=== PATIENT | female | born 1985 | race Caucasian/White ===

== ENCOUNTER 2017-08-23 09:21 | Inpatient (IN) ==
[2017-08-23] MEDS ORDERED: FAMOTIDINE 20 MG/2 ML VIAL IV ONE (09:39)
[2017-08-23] MEDS ORDERED: CITRIC ACID/SODIUM CITRATE 30 ML UDCUP PO ONE (09:39)
[2017-08-23] MEDS ORDERED: ceFAZolin 2,000 MG in PREMIX 1 EACH IV ONE (10:00)
[2017-08-23 10:18] LABS: Basophils # 0.1 10*3/uL (0.0-0.2); Basophils % 0.5 % (0.0-0.8); Eosinophils # 0.1 10*3/uL (0.0-0.87); Eosinophils % 0.7 % (0.00-10.9); Hematocrit 39.4 VOL% (35.7-47.0); Hemoglobin 12.9 GM/DL (12.0-16.0); Immature Granulocytes % 0.5 %; Immature Granulocytes Absolute 0.05 #; Lymphocytes # 2.8 10*3/uL (1.4-4.0); Lymphocytes % 29.5 % (21.3-54.2); Mean Corpuscular HGB Conc 32.7 GM/DL (32-36); Mean Corpuscular Hemoglobin 28 PG (27-34); Mean Corpuscular Volume 85.5 FL (87-102); Mean Platelet Volume 11.6 FL (9.6-12.0); Monocytes # 0.4 10*3/uL (0.11-0.8); Monocytes % 4.7 % (1.7-12.7); Neutrophils % 64.1 % (38.7-73.9); Platelet Count 262 T/CUMM (130-400); Red Blood Count 4.61 MC/CUMM (3.8-5.5); Red Cell Distribution Width 14.6 % (9.3-17.3); White Blood Count 9.4 T/CUMM (4-12)
[2017-08-23] MEDS: LACTATED RINGERS 1,000 ML IV SCH ×3 (10:28→22:24)
[2017-08-23 10:47] LABS: Apearance,Urine Slightly Hazy (Clear); Bacteria,Urine Occasional /HPF (Few); Bilirubin,Urine Negative (Negative); Blood, Urine Negative (Negative); Glucose,Urine (UA) Negative (Negative); Ketones,Urine Negative (Negative); Mucus,Urine Occasional /LPF (Occasional); Nitrite,Urine Negative (Negative); Protein,Urine Negative; RBC,Urine 2 /HPF (0-4); Squamous Epithelial Cell,Urine Occasional /HPF (0-10); Urine Specific Gravity 1.018 (1.001-1.035); WBC,Urine 7 /HPF (0-6)
[2017-08-23 10:48] LABS: Urine Color Yellow (Yellow)
[2017-08-23 10:54] LABS: Albumin 2.6 G/DL (3.4-5.0); Bilirubin,Total 0.7 MG/DL (0.2-1.0); Calcium 9.1 MG/DL (8.5-10.1); Osmolality,Calculated 271.7 MOS/KG (273-304); Potassium 4.1 MMOL/L (3.5-5.1); Total Protein 7.4 G/DL (6.4-8.3)
[2017-08-23 11:18] LABS: Barbiturates Screen,Urine Negative (Negative); Benzodiazepines Screen,Urine Positive (Negative); Cannabinoid Screen,Urine Positive (Negative); Opiate Screen,Urine Negative (Negative); Phencyclidine Screen,Urine Negative (Negative)
[2017-08-23] MEDS ORDERED: OXYTOCIN 10 UNIT/ML VIAL ONE ×2 (12:50→14:17)
[2017-08-23] MEDS ORDERED: LANOLIN 50% CREAM 0.3 OZ TUBE TOP PRN (13:00)
[2017-08-23] MEDS ORDERED: ACETAMINOPHEN 325 MG TABLET PO PRN (13:00)
[2017-08-23] MEDS ORDERED: BENZOCAINE 20%/MENTHOL 0.5% SPRAY 56 GM CAN TOP PRN (13:00)
[2017-08-23] MEDS ORDERED: BISACODYL 10 MG SUPP RECTAL PRN (13:00)
[2017-08-23] MEDS ORDERED: DIPH/TET/ACEL PERT BOOSTER VACCINE 0.5 ML VIAL IM ONE (13:00)
[2017-08-23] MEDS ORDERED: WITCH HAZEL PADS 100/JAR TOP PRN (13:00)
[2017-08-23] MEDS ORDERED: ONDANSETRON 4 MG/2 ML VIAL IV PRN ×2 (13:00→14:33)
[2017-08-23] MEDS ORDERED: OXYTOCIN/LR 20 UNIT/1,000 ML BAG IV ONE ×2 (13:00→13:30)
[2017-08-23] MEDS ORDERED: HYDROCORTISONE 2.5% RECTAL CREAM 30 GM TUBE TOP PRN (13:00)
[2017-08-23] MEDS ORDERED: oxyCODONE/ACETAMINOPHEN 5-325 MG TABLET PO PRN ×2 (13:00)
[2017-08-23] MEDS ORDERED: MEASLES/MUMPS/RUBELLA VACCINE 0.5 ML VIAL SUBCUT ONE (13:00)
[2017-08-23] MEDS ORDERED: RHO(D) IMMUNE GLOBULIN 300 MCG SYRINGE IM ONE (13:00)
[2017-08-23 13:04] LABS: Cord Arterial Blood HCO3 20.2 MMOL/L
[2017-08-23] MEDS ORDERED: fentaNYL 100 MCG/2 ML VIAL ONE (13:17)
[2017-08-23] MEDS ORDERED: MORPHINE 10 MG/10 ML VIAL ONE (13:17)
[2017-08-23] MEDS ORDERED: ePHEDrine 50 MG/ML AMP ONE ×2 (13:17)
[2017-08-23] MEDS ORDERED: MIDAZOLAM 2 MG/2 ML VIAL ONE (13:17)
[2017-08-23] MEDS ORDERED: PROPOFOL 200 MG/20 ML VIAL IV ONE (13:37)
[2017-08-23] MEDS ORDERED: ONDANSETRON 4 MG/2 ML VIAL ONE (13:38)
[2017-08-23] MEDS ORDERED: diphenhydrAMINE 50 MG/1 ML VIAL IV PRN (14:33)
[2017-08-23] MEDS ORDERED: hydrOXYzine HCL 25 MG/1 ML VIAL IM PRN (14:33)
[2017-08-23] MEDS: HYDROmorphone 2 MG/1 ML VIAL IV PRN ×3 (14:54→20:37)
[2017-08-23 19:12] LABS: PT Patient Result 10.3 SECS
[2017-08-23 19:24] LABS: Uric Acid 4.8 MG/DL (2.6-6.0)
[2017-08-23 20:17] LABS: Hepatitis A Ab IgM Quant < 0.02 Index; Hepatitis A Ab IgM Result Negative (Negative); Hepatitis B Core IgM Quant 0.11 Index; Hepatitis B Core IgM Result Negative (Negative); Hepatitis B Surface Ag Quant 0.14 Index; Hepatitis B Surface Ag Result Negative (Negative)
[2017-08-23 20:20] LABS: Hepatitis C Virus Ab Quant > 11.00 Index; Hepatitis C Virus Ab Result Positive (Negative)
[2017-08-23] MEDS: SODIUM CHLORIDE 0.9% 1,000 ML IV SCH (21:11)
[2017-08-23] MEDS: DOCUSATE SODIUM 100 MG CAPSULE PO SCH (21:12)
[2017-08-23] MEDS: ceFAZolin 1,000 MG in SYRINGE 1 EACH IV SCH (21:57)
[2017-08-24] MEDS: HYDROmorphone 2 MG/1 ML VIAL IV PRN ×2 (02:54→05:46)
[2017-08-24 05:37] LABS: Basophils # 0.1 10*3/uL (0.0-0.2); Basophils % 0.4 % (0.0-0.8); Eosinophils # 0.1 10*3/uL (0.0-0.87); Eosinophils % 0.7 % (0.00-10.9); Hematocrit 33.8 VOL% (35.7-47.0); Immature Granulocytes % 0.4 %; Immature Granulocytes Absolute 0.05 #; Lymphocytes % 22.7 % (21.3-54.2); Mean Corpuscular HGB Conc 32.5 GM/DL (32-36); Mean Corpuscular Hemoglobin 28 PG (27-34); Mean Corpuscular Volume 86.7 FL (87-102); Mean Platelet Volume 12.4 FL (9.6-12.0); Monocytes # 0.7 10*3/uL (0.11-0.8); Neutrophils # 9.5 10*3/uL (1.4-7.4); Neutrophils % 70.8 % (38.7-73.9); Red Cell Distribution Width 14.5 % (9.3-17.3)
[2017-08-24 05:42] LABS: Platelet Count 159 T/CUMM (130-400); White Blood Count 13.4 T/CUMM (4-12)
[2017-08-24] MEDS: ceFAZolin 1,000 MG in SYRINGE 1 EACH IV SCH ×2 (05:49→13:26)
[2017-08-24] MEDS: LACTATED RINGERS 1,000 ML IV SCH ×3 (05:50→20:19)
[2017-08-24 05:57] LABS: Bilirubin,Total 0.8 MG/DL (0.2-1.0); Calcium 8.1 MG/DL (8.5-10.1); Osmolality,Calculated 270.7 MOS/KG (273-304); Total Protein 5.4 G/DL (6.4-8.3)
[2017-08-24 06:22] LABS: Hypochromasia 1+
[2017-08-24 06:23] LABS: Microcytosis 1+; Ovalocytes Slight
[2017-08-24 06:24] LABS: Platelet Estimate Adequate
[2017-08-24] MEDS: IBUPROFEN 800 MG TABLET PO PRN ×2 (09:04→15:03)
[2017-08-24] MEDS: MULTIVITAMIN (PRENATAL) TABLET PO SCH (09:04)
[2017-08-24] MEDS: DOCUSATE SODIUM 100 MG CAPSULE PO SCH ×2 (09:04→20:44)
[2017-08-24] MEDS: MAGNESIUM HYDROXIDE SUSP 30 ML UDCUP PO PRN ×2 (09:04→20:44)
[2017-08-24] MEDS ORDERED: oxyCODONE/ACETAMINOPHEN 5-325 MG TABLET PO PRN (10:16)
[2017-08-24] MEDS: oxyCODONE/ACETAMINOPHEN 5-325 MG TABLET PO PRN ×2 (10:36→17:10)
[2017-08-24 12:22] LABS: HIV Antigen/Antibody Result Nonreactive (Nonreactive)
[2017-08-24 13:18] LABS: Hepatitis B Core Ab Result Negative (Negative); Hepatitis B Surface Ab Result Negative
[2017-08-24] MEDS: SIMETHICONE CHEW 80 MG TABLET PO PRN ×2 (15:07→20:44)
[2017-08-24] MEDS: SODIUM CHLORIDE 0.9% 1,000 ML IV SCH (20:19)
[2017-08-25] MEDS: IBUPROFEN 800 MG TABLET PO PRN (03:04)
[2017-08-25] MEDS: oxyCODONE/ACETAMINOPHEN 5-325 MG TABLET PO PRN ×2 (03:04→09:07)
[2017-08-25] MEDS: LACTATED RINGERS 1,000 ML IV SCH (04:37)
[2017-08-25 07:40] VITALS: BP 106/67
[2017-08-25] MEDS: MULTIVITAMIN (PRENATAL) TABLET PO SCH (09:06)
[2017-08-25] MEDS: DOCUSATE SODIUM 100 MG CAPSULE PO SCH (10:21)
== END 2017-08-25 12:50 | disposition home or self-care (01) | DRG 540 ==
LOC: N.LDOUT 09:21 → N.LD 09:23 → N.OB 16:01
PROVIDERS: ADMIT Specialist; ATTEND Specialist
PROC: LDCSECT (ICD-10-PCS; 2017-08-23 12:00)

== ENCOUNTER 2021-01-01 21:55 | Observation (INO) ==
[2021-01-01 22:38] LABS: Basophils % 0.4 % (0.0-0.8); Eosinophils # 0.1 10*3/uL (0.0-0.87); Eosinophils % 1.2 % (0.00-10.9); Hematocrit 35.6 VOL% (35.7-47.0); Immature Granulocytes % 0.3 %; Immature Granulocytes Absolute 0.03 #; Lymphocytes # 1.6 10*3/uL (1.4-4.0); Lymphocytes % 17.6 % (21.3-54.2); Mean Corpuscular HGB Conc 30.9 GM/DL (32-36); Mean Corpuscular Volume 85.8 FL (87-102); Mean Platelet Volume 11.1 FL (9.6-12.0); Monocytes % 8.1 % (1.7-12.7); Neutrophils % 72.4 % (38.7-73.9); Platelet Count 192 T/CUMM (130-400); Red Blood Count 4.15 MC/CUMM (3.8-5.5); Red Cell Distribution Width 14.5 % (9.3-17.3); White Blood Count 9.2 T/CUMM (4-12)
[2021-01-01 22:55] LABS: PT Patient Result 10.5 SECS (9.8-11.9)
[2021-01-01 23:09] LABS: Alanine Aminotransferase 25 U/L (13-56); Albumin 3.3 G/DL (3.4-5.0); Alkaline Phosphatase 75 U/L (45-117); Aspartate Amino Transferase 26 U/L (0-37); Bilirubin,Total < 0.39 MG/DL (0.2-1.0); Blood Urea Nitrogen 11 MG/DL (7-18); Calcium 8.7 MG/DL (8.5-10.1); Carbon Dioxide 26 MMOL/L (21-32); Estimated Glom Filtration Rate 119 ML/MIN; Glucose 87 MG/DL (74-106); Potassium 4.2 MMOL/L (3.5-5.1); Sodium 136 MMOL/L (136-145); Total Protein 6.7 G/DL (6.4-8.2)
[2021-01-01 23:15] LABS: Acetaminophen < 2.0 UG/ML (10-30); Salicylate < 2.8 MG/DL (2.8-20)
[2021-01-01 23:24] LABS: Bilirubin,Urine Negative (Negative); Blood, Urine Negative (Negative); Glucose,Urine (UA) Negative (Negative); Hyaline Casts,Urine 22 /LPF (0-3); Ketones,Urine Negative (Negative); Mucus,Urine Occasional /LPF (Occasional); Nitrite,Urine Negative (Negative); Protein,Urine 100 MG/DL; RBC,Urine 4 /HPF (0-4); Squamous Epithelial Cell,Urine Occasional /HPF (0-10); Urine Appearance CLEAR (Clear); Urine Color Yellow (Yellow); Urine Specific Gravity 1.015 (1.001-1.035); Urine Urobilinogen < 2.0 EU/DL (0.2-1.0); WBC,Urine 5 /HPF (0-6)
[2021-01-01 23:26] LABS: Barbiturates Screen,Urine Negative (Negative); Benzodiazepines Screen,Urine Negative (Negative); Cannabinoid Screen,Urine Positive (Negative); Opiate Screen,Urine Negative (Negative); Phencyclidine Screen,Urine Negative (Negative)
[2021-01-02] MEDS ORDERED: ONDANSETRON 4 MG/2 ML VIAL IV PRN (00:41)
[2021-01-02] MEDS ORDERED: ACETAMINOPHEN 325 MG TABLET PO PRN (00:41)
[2021-01-02] MEDS ORDERED: GLUCAGON 1 MG VIAL IM PRN (00:41)
[2021-01-02] MEDS ORDERED: DEXTROSE 50% 25 GM/50 ML VIAL IV PRN (00:41)
[2021-01-02] MEDS ORDERED: traZODone 50 MG TABLET PO PRN (00:41)
[2021-01-02] MEDS ORDERED: DOCUSATE SODIUM 100 MG CAPSULE PO PRN (00:41)
[2021-01-02] MEDS ORDERED: hydrALAZINE 20 MG/1 ML VIAL IV PRN (00:41)
[2021-01-02] MEDS ORDERED: LORazepam 2 MG/1 ML VIAL IV PRN (00:47)
[2021-01-02] MEDS ORDERED: ENOXAPARIN 40 MG/0.4 ML SYRINGE SUBCUT SCH (01:00)
[2021-01-02] MEDS ORDERED: NALOXONE 0.4 MG/ML VIAL IV PRN (01:16)
[2021-01-02] MEDS ORDERED: IBUPROFEN 400 MG TABLET PO PRN (03:07)
[2021-01-02] MEDS: SODIUM CHLORIDE 0.9% 1,000 ML IV SCH ×2 (03:29→10:48)
[2021-01-02 12:11] VITALS: BP 94/60
== END 2021-01-02 15:00 | disposition home or self-care (01) ==
LOC: EDBD → EDUNIT# → N.EDINP 21:55 → N.ED 21:55 → N.TELEN 01-02 02:16
PROVIDERS: ADMIT Emergency Medicine; ATTEND Emergency Medicine